=== PATIENT | female | born 1935 | race Two or more races ===

== ENCOUNTER 2018-12-16 05:20 | Day surgery (SDC) | payer OTHER ==
[~2018-12-16 05:20] MED LIST: BAYER CHILDREN'81 MG PO; DETROL LA4 MG PO; DURACEF PO; LYRICA50 MG PO; PLETAL PO; SINGULAIR10 MG PO; TIROSINT25 MCG PO; TRENTAL PO; VOLTAREN PO; ZOCOR20 MG PO; ZYRTEC10 M3 PO; [UNRECOGNIZED DRUG - OTHER] PO
[2018-12-16] MEDS ORDERED: MACROBID 100 M100 MG PO (10:36)
[2018-12-16] MEDS ORDERED: ULTRACET PO (10:36)
== END 2018-12-16 16:14 | disposition home or self-care (01) ==
LOC: CIR.AMB 05:20
DX: N81.3 Complete uterovaginal prolapse (principal)